=== PATIENT | male | born 1960 | race Caucasian/White ===

== ENCOUNTER 2018-10-05 13:03 | Emergency (ER) | payer OTHER ==
[2018-10-05 13:20] VITALS: BMI 23.6
[2018-10-05] MEDS ORDERED: ACETAMINOPHEN 325 MG TABLET (FP) PO ONE (13:48)
[2018-10-05] MEDS ORDERED: ACETAMINOPHEN 325 MG TABLET (FP) ONE (13:58)
[2018-10-05 14:31] LABS: BASO % 0.8 % (0-2.0); EOS % 2.5 % (0-4.5); HEMATOCRIT 31.6 % (35.4-49); HEMOGLOBIN 11.2 GM/dL (11.7-16.9); LYMPH % 7.3 % (8-40); MCH 33.4 pg (25.7-33.7); MCHC 35.5 g/dl (32.0-35.9); MEAN CELL VOLUME 94.1 fl (80-96); MEAN PLT VOLUME 8.7 fl (7.5-11.1); MONO % 4.2 % (3.8-10.2); NEUT % 85.2 % (42.8-82.8); PLATELET COUNT 211 K/MM3 (134-434); RBC 3.35 M/mm3 (4.00-5.60); WHITE BLOOD COUNT 8.1 K/mm3 (4.0-10.0)
--- NOTE | 2018-10-05 14:32 | PDOC ---
History of Present Illness - General Chief Complaint: Blood Sugar Problem Stated Complaint: WEAKNESS Time Seen by Provider: 10/05/18 13:27 History Source: Patient Exam Limitations: No Limitations - History of Present Illness Initial Comments: 10/05/18 14:04 The patient is a 58M with a PMH of T2DM, HTN, HLD who presents to the ER with complaints of lightheadedness. The patient was with his son who states that he was having difficulty walking and felt weak. He denies any CP, SOB, fever, chills, nausea, vomiting, numbness, or weakness. He admits to b/l lower extremity tingling and posterior neck pressure, both of which started at 1030 this morning. He denies any other symptoms. Past History - Past Medical History Allergies/Adverse Reactions: Allergies Allergy/AdvReac Type Severity Reaction Status Date / Time No Known Allergies Allergy Verified 09/02/13 17:14 Home Medications: Ambulatory Orders Amlodipine Besylate 10 mg PO DAILY 10/05/18 Clonidine HCl 0.1 mg PO DAILY 10/05/18 Insulin Aspart [Novolog] 10 unit SQ TID 10/05/18 Insulin Degludec [Tresiba] 44 unit SQ DAILY 10/05/18 Labetalol HCl 300 mg PO TID 10/05/18 Levothyroxine [Synthroid -] 112 mcg PO DAILY 10/05/18 Rosuvastatin Calcium [Crestor] 10 mg PO DAILY 10/05/18 Anemia: No Asthma: No Cancer: No Cardiac Disorders: No CVA: No COPD: No CHF: No Diabetes: Yes GI Disorders: No Disorders: No HTN: Yes Hypercholesterolemia: Yes Liver Disease: No Seizures: No Thyroid Disease: No - Surgical History Abdominal Surgery: No Appendectomy: No Cardiac Surgery: No Cholecystectomy: No Lung Surgery: No Neurologic Surgery: No Orthopedic Surgery: Yes ("removed liquid to right knee") - Suicide/Smoking/Psychosocial Hx Smoking History: Unknown if ever smoked Have you smoked in the past 12 months: No Information on smoking cessation initiated: No Hx Alcohol Use: No Drug/Substance Use Hx: No Substance Use Type: None Hx Substance Use Treatment: No Review of Systems - Review of Systems Able to Perform ROS?: Yes Comments:: 10/05/18 14:32 GENERAL/CONSTITUTIONAL: + for generalized weakness. No fever or chills. HEAD, EYES, EARS, NOSE AND THROAT: No change in vision. No ear pain or discharge. No sore throat. CARDIOVASCULAR: + for lightheadedness. No chest pain or palpitations. RESPIRATORY: No cough, wheezing, shortness of breath, or hemoptysis. GASTROINTESTINAL: No nausea, vomiting, diarrhea, constipation, or abdominal pain. GENITOURINARY: No dysuria, frequency, hematuria, or change in urination. MUSCULOSKELETAL: No joint or muscle swelling or pain. No neck or back pain. SKIN: No rash or lesions. NEUROLOGIC: + for tingling. No headache, numbness, focal weakness, loss of consciousness, or change in strength/sensation. Is the patient limited Czech proficient: No *Physical Exam - Vital Signs Last Vital Signs Temp Pulse Resp BP Pulse Ox 98.2 F 69 18 131/62 100 10/05/18 13:18 10/05/18 13:18 10/05/18 13:18 10/05/18 13:18 10/05/18 13:18 - Physical Exam Comments: 10/05/18 14:33 GENERAL: Well developed, well nourished. Awake and alert. No acute distress. HEENT: Normocephalic, atraumatic. Hearing grossly normal. Moist mucous membranes. PERRLA, EOMI. No conjunctival pallor. NECK: Supple. Full ROM. No JVD. CARDIOVASCULAR: Regular rate and rhythm. No murmurs, rubs, or gallops. PULMONARY: No evidence of respiratory distress. Lungs clear to auscultation bilaterally. No wheezing, rales or rhonchi. ABDOMINAL: Soft. Non-tender. Non-distended. No rebound or guarding. GENITOURINARY: No CVA tenderness bilaterally. MUSCULOSKELETAL: Normal range of motion at all joints. No bony deformities or tenderness. EXTREMITIES: No cyanosis. No clubbing. No edema. No calf tenderness or swelling. SKIN: Warm and dry. Normal capillary refill. No rashes. No jaundice. NEUROLOGICAL: Alert, awake, appropriate. Cranial nerves 2-12 grossly intact. No deficits to light touch and temperature in face, upper extremities and lower extremities. 5/5 strength in deltoids, biceps, triceps, quadriceps, hamstrings, and gastrocnemius. Normal speech. Gait is normal without ataxia. PSYCHIATRIC: Cooperative. Good eye contact. Appropriate mood and affect. Moderate Sedation - Procedure Monitoring Vital Signs: Procedure Monitoring Vital Signs Temperature 98.2 F 10/05/18 13:18 Pulse Rate 69 10/05/18 13:18 Respiratory Rate 18 10/05/18 13:18 Blood Pressure 131/62 10/05/18 13:18 O2 Sat by Pulse Oximetry (%) 100 10/05/18 13:18 ED Treatment Course - LABORATORY CBC & Chemistry Diagram: 10/05/18 14:15 10/05/18 14:15 - ADDITIONAL ORDERS Additional order review: Laboratory Results 10/05/18 13:15 POC Glucometer 58 10/05/18 13:15 POC Glucometer 58 - Medications Given in the ED: ED Medications Discontinued Medications Generic Name Dose Route Start Last Admin Trade Name Freq PRN Reason Stop Dose Admin Acetaminophen 650 mg 10/05/18 13:48 10/05/18 14:00 Tylenol - PO 10/05/18 13:49 650 mg ONCE ONE Administration Medical Decision Making - Medical Decision Making 10/05/18 14:35 The patient is a 58M with a PMH of HTN, HLD, T2DM who presents to the ER with lightheadedness and generalized weakness. FS found to be 59. Given juice and a food tray. Tylenol given for neck pain. Will reassess. 10/05/18 15:40 Cr 5.7. Pt now well appearing w/o neck pain. FS after eating 120. Case d/w Dr. Pérez who states that he is not concerned with the elevated Cr. D/w patient regarding obs vs home. Pt states he will go home and has appointment with Dr. Pérez in 4 days and will make appt with PCP. I have instructed him to eat constantly d/t half life of triceba and monitor his BGL. Pt agrees and is ready for d/c. *DC/Admit/Observation/Transfer Diagnosis at time of Disposition: Hypoglycemia - Discharge Dispostion Disposition: HOME Condition at time of disposition: Stable Decision to Admit order: No - Referrals Referrals: Khoa Alcala MD [Primary Care Provider] - - Patient Instructions Printed Discharge Instructions: DI for Hypoglycemia Additional Instructions: Your ER visit is not complete until your follow up with your primary care physician. Please follow up with your primary care physician in 1-2 days. Please return to the ER if you have any signs or symptoms of chest pain, shortness of breath, uncontrollable fever, chills, nausea, vomiting, numbness, tingling, or weakness in any part of your body, changes in vision, or slurred speech. Please take your medications as prescribed. Please return to the ER if symptoms persist, worsen, or new symptoms arise. - Post Discharge Activity
[2018-10-05 14:42] LABS: ALBUMIN 3.7 g/dl (3.4-5.0); ALK PHOS 144 U/L (45-117); ANION GAP 10 MMOL/L (8-16); BILIRUBIN,TOTAL 0.4 mg/dL (0.2-1); BLOOD UREA NITROGEN 58 mg/dL (7-18); CALCIUM 8.1 mg/dL (8.5-10.1); CHLORIDE 113 mmol/L (98-107); CO2 20 mmol/L (21-32); CREATININE 5.7 mg/dL (0.55-1.3); GLUCOSE,RANDOM 64 mg/dL (74-106); POTASSIUM 4.8 mmol/L (3.5-5.1); SGOT/AST 29 U/L (15-37); SGPT/ALT 35 U/L (13-61); SODIUM 144 mmol/L (136-145); TOT PROT 6.7 g/dl (6.4-8.2)
--- NOTE | 2018-10-05 15:45 | PDOC ---
Attending Attestation - Resident Resident Name: Geovanny Santos - ED Attending Attestation I have performed the following: I have examined & evaluated the patient, The case was reviewed & discussed with the resident, I agree w/resident's findings & plan, Exceptions are as noted - HPI HPI: 10/05/18 15:40 The patient is a 58 year old male, with a significant past medical history of HTN and IDDM, who presents to the emergency department after his son found him confused. Son notes that around 11AM, pt was lethargic and did not seem to be behaving himself. He was brought to the ED, where a fingerstick was measured to be in the 50s. Pt was given juice, with subsequent return to baseline. Pt endorses feeling lightheaded with mild headache and tingling in his legs, all of which have resolved after drinking juice. Pt notes that he took his usual 42u of tresiba this morning at 6am. However, he did not eat anything afterwards. Only drank a cup of coffee. He denies any recent fevers or chills. He denies any recent nausea, vomit, diarrhea or constipation. He denies any recent chest pain or shortness of breath. He denies any recent dysuria, frequency, urgency or hematuria. Allergies: NKDA Past surgical history: None reported. Social History: Nonsmoker. Denies EtOH use and recreational drug use. Primary Care Physician: Dr. Khoa Alcala - Physicial Exam PE: 10/05/18 15:43 GENERAL: Awake, alert, and fully oriented, in no acute distress. HEAD: No signs of trauma EYES: PERRLA, EOMI, sclera anicteric, conjunctiva clear ENT: Auricles normal inspection, hearing grossly normal, nares patent, oropharynx clear without exudates. Moist mucosa NECK: Nontender, no stepoffs, Normal ROM, supple, no lymphadenopathy, JVD, or masses LUNGS: Breath sounds equal, clear to auscultation bilaterally. No wheezes, and no crackles HEART: Regular rate and rhythm, normal S1 and S2, no murmurs, rubs or gallops ABDOMEN: Soft, nontender, normoactive bowel sounds. No guarding, no rebound. No masses EXTREMITIES: Normal range of motion, no edema. No clubbing or cyanosis. No cords, erythema, or tenderness NEUROLOGICAL: Cranial nerves II through XII intact. 5/5 strength and sensation in all extremities, Normal speech, normal gait, normal cerebellar function SKIN: Warm, Dry, normal turgor, no rashes or lesions noted. - Medical Decision Making 10/05/18 15:43 58 M with AMS, found to be hypoglycemic in ED. Now back to baseline mentation after juice. Pt's hypoglycemia likely 2/2 not eating this morning. - Labs - Feed - Recheck fingerstick 10/05/18 15:44 Pt's creatinine 5.7 Per pt's medical device assembler Dr. Ryan, pt's last Cr was just under 5 the last time it was checked. Labs otherwise unremarkable 10/05/18 15:47 Repeat fingerstick wnl after eating BP noted to be elevated to 190s systolic. Pt states he is due for his labetalol 200mg TID. Pt's home med ordered 10/05/18 17:25 BP improved Pt is well appearing, with normal vitals. Clinically stable for DC at this time. I discussed the physical exam findings, ancillary test results and final diagnoses with the patient. I answered all of the patient's questions. The patient was satisfied with the care received and felt comfortable with the discharge plan and treatment plan. The patient agrees to follow up with the primary care physician within 24-72 hours.
[2018-10-05 15:52] VITALS: TEMP 97.8
[2018-10-05] MEDS ORDERED: LABETALOL HCL 200 MG TABLET (FP) PO ONE (16:06)
[2018-10-05] MEDS ORDERED: LABETALOL HCL 100 MG TABLET (FP) ONE (16:08)
[2018-10-05 17:26] VITALS: BP 171/81; PULSE 80
== END 2018-10-05 17:29 | disposition home or self-care (01) ==
LOC: JER 13:03
DX: E11.649 Type 2 diabetes mellitus with hypoglycemia without coma (principal); Z79.84 Long term (current) use of oral hypoglycemic drugs; I10 Essential (primary) hypertension; E78.00 Pure hypercholesterolemia, unspecified
CPT/HCPCS: 36415; 80053; 82962; 85025; 99283-25

== ENCOUNTER 2022-02-03 21:29 | Emergency (ER) | payer MEDICARE, OTHER ==
[2022-02-03 21:38] VITALS: BP 128/72; PULSE 68; TEMP 98; BMI 21.4
== END 2022-02-04 00:28 | disposition left against medical advice (07) ==
LOC: JER 21:29
DX: M79.674 Pain in right toe(s) (principal)
CPT/HCPCS: 99281-25

== ENCOUNTER 2024-11-03 15:39 | Inpatient (IN) | payer MEDICARE, OTHER ==
[2024-11-03] MEDS: SODIUM CHLORIDE 0.9% 1000 ML INFUS.BAG IV STA (17:49)
[2024-11-03 17:58] LABS: VENOUS BASE EXCESS -8.1 mmol/L (-2-2); VENOUS O2 SATURATION 52.3 % (70-80); VENOUS PCO2 36.1 mmHg (38-52); VENOUS PH 7.299 (7.310-7.410)
[2024-11-03 18:00] LABS: HEMATOCRIT 52.6 % (40.1-51.0); HEMOGLOBIN 16.9 g/dL (13.7-17.5); MCHC 32.1 g/dl (32.3-36.5); MEAN CELL VOLUME 94.4 fl (79.0-92.2); MEAN PLT VOLUME 11.1 fl (9.4-12.4); PLATELET COUNT 228 x10^3/uL (163-337); RDW 12.7 % (12.2-16.4)
[2024-11-03 18:07] LABS: INR 1.74 (0.83-1.09); PROTHROMBIN TIME (PATIENT) 19.1 SEC (9.7-13.0)
[2024-11-03 18:10] LABS: ACTIVATED PTT 35.2 SECONDS (25.2-36.5)
[2024-11-03 18:26] LABS: POTASSIUM 5.1 mmol/L (3.5-5.1)
[2024-11-03 18:29] LABS: ALBUMIN 3.1 g/dl (3.4-5.0); BLOOD UREA NITROGEN 57.7 mg/dL (7-18); MAGNESIUM 1.8 mg/dL (1.8-2.4)
[2024-11-03 18:32] LABS: CREATININE 1.5 mg/dL (0.55-1.3)
[2024-11-03 18:33] LABS: BILIRUBIN,TOTAL 0.8 mg/dL (0.2-1); TOT PROT 6.5 g/dl (6.4-8.2)
[2024-11-03 18:35] LABS: LACTIC ACID 2.7 mmol/L (0.4-2.0)
[2024-11-03 19:17] LABS: BILIRUBIN,DIRECT 0.3 mg/dL (0.0-0.2)
[2024-11-03] MEDS: SODIUM CHLORIDE 0.9% 500 ML INFUS.BAG IV ONE (20:49)
[2024-11-03 22:30] LABS: PH,URINE 5.5 (5.0-8.0); URINE APPEARANCE CLOUDY; URINE BILIRUBIN NEGATIVE (NEGATIVE); URINE COLOR YELLOW; URINE GLUCOSE (UA) >=1000 (NEGATIVE); URINE KETONE 15 mg/dl (NEGATIVE); URINE PROTEIN 100 (NEGATIVE); URINE UROBILINOGEN 0.2 mg/dL (0.2-1.0)
[2024-11-03 22:31] LABS: URINE LEUK ESTERASE NEGATIVE (NEGATIVE); URINE NITRITE NEGATIVE (NEGATIVE)
[2024-11-04 00:16] VITALS: BMI 18.5
[2024-11-04] MEDS: SODIUM CHLORIDE 0.45% 1,000 ML IV SCH (02:36)
[2024-11-04] MEDS: TACROLIMUS ANHYDROUS 1 MG CAPSULE PO SCH (03:18)
[2024-11-04] MEDS: REPAGLINIDE 0.5 MG TABLET (FP) PO SCH (06:28)
[2024-11-04] MEDS: LEVOTHYROXINE NA 75 MCG TABLET (FP) PO SCH (06:28)
[2024-11-04 08:47] LABS: HEMATOCRIT 42.5 % (40.1-51.0); HEMOGLOBIN 13.8 g/dL (13.7-17.5); MCHC 32.5 g/dl (32.3-36.5); MEAN CELL VOLUME 94.7 fl (79.0-92.2); MEAN PLT VOLUME 11.3 fl (9.4-12.4); PLATELET COUNT 187 x10^3/uL (163-337); RDW 12.8 % (12.2-16.4)
[2024-11-04 09:30] LABS: ALBUMIN 2.3 g/dl (3.4-5.0); BILIRUBIN,TOTAL 0.7 mg/dL (0.2-1); CALCIUM 9.9 mg/dL (8.5-10.1); CREATININE 0.9 mg/dL (0.55-1.3); POTASSIUM 4.2 mmol/L (3.5-5.1); TOT PROT 4.8 g/dl (6.4-8.2)
[2024-11-04] MEDS: ZINC SULFATE 220 MG CAPSULE (FP) PO SCH (09:36)
[2024-11-04] MEDS: predniSONE 5 MG TABLET (UD) PO SCH (09:36)
[2024-11-04] MEDS: ASPIRIN 81 MG CHEWABLE TABLETS PO SCH (09:37)
[2024-11-04] MEDS: CINACALCET HCL 30 MG TAB (FP) PO SCH (09:38)
[2024-11-04] MEDS: METOPROLOL TARTRATE 25 MG TABLET (FP) PO SCH (09:41)
[2024-11-04 13:44] LABS: ERYTHROCYTE SEDIMENTATION RATE 14 mm/hr (0-20)
[2024-11-04] MEDS ORDERED: ONDANSETRON 4 MG/2 ML VIAL IVPUSH PRN (17:53)
[2024-11-04] MEDS: ONDANSETRON 4 MG/2 ML VIAL IVPUSH ONE (21:20)
[2024-11-04] MEDS: TAMSULOSIN HCL 0.4 MG CAP PO SCH (21:21)
[2024-11-05] MEDS: INSULIN ASPART SLIDING SCALE (NOVOLOG) 1 VIAL SQ SCH (06:44)
[2024-11-05 07:21] LABS: INR 1.31 (0.83-1.09); PROTHROMBIN TIME (PATIENT) 14.3 SEC (9.7-13.0)
[2024-11-05 07:24] LABS: ABSOLUTE IMMATURE GRANULOCYTES 0.04 x10^3/uL (0.0-0.031); BASOPHILS # 0.02 x10^3/uL (0.01-0.08); EOSINOPHIL % 0.4 % (0.8-7.0); EOSINOPHILS # 0.02 x10^3/uL (0.04-0.54); HEMATOCRIT 45.9 % (40.1-51.0); HEMOGLOBIN 14.9 g/dL (13.7-17.5); MCHC 32.5 g/dl (32.3-36.5); MEAN CELL VOLUME 93.9 fl (79.0-92.2); MEAN PLT VOLUME 11.2 fl (9.4-12.4); MONOCYTE % 10.2 % (5.3-12.2); PLATELET COUNT 180 x10^3/uL (163-337); RDW 12.8 % (12.2-16.4)
[2024-11-05 08:26] LABS: CALCIUM 9.5 mg/dL (8.5-10.1)
[2024-11-05 08:27] LABS: ALBUMIN 2.4 g/dl (3.4-5.0); BLOOD UREA NITROGEN 40.1 mg/dL (7-18)
[2024-11-05 08:31] LABS: BILIRUBIN,TOTAL 0.7 mg/dL (0.2-1); TOT PROT 4.9 g/dl (6.4-8.2)
[2024-11-05] MEDS: AMMONIUM LACTATE 12% LOTION 225 GM BOTTLE TP SCH (11:36)
[2024-11-05 12:54] LABS: HCV DIAGNOSTIC IN-HOUSE W/RFLX REACTIVE (NONREACTIVE)
[2024-11-06 09:39] VITALS: RESP 18
[2024-11-06 14:43] VITALS: BP 127/58; PULSE 58; TEMP 97.7
[2024-11-06] MEDS ORDERED: LOPERAMIDE HCL 2 MG CAPSULE PO ONE (18:16)
[2024-11-07 04:06] LABS: FIBROSIS SCORE. 0.23 (0.00-0.21); HCV ALPHA 2 MACRO CHART 179 mg/dL (110-276); NECRO.INFLAM ACT.SCORE 0.61 (0.00-0.17); NECROINFLAM. ACTIVITY GRADE A2-A3 (.)
== END 2024-11-06 18:04 | disposition home or self-care (01) | DRG 392 ==
LOC: JER 15:39 → JERBED 18:53 → J4W 23:04
PROVIDERS: ADMIT Student in an Organized Health Care Education/Training Program; ATTEND Family Medicine
DX: A08.39 Other viral enteritis (principal); E87.1 Hypo-osmolality and hyponatremia; I12.0 Hypertensive chronic kidney disease with stage 5 chronic kidney disease or end stage renal disease; Z94.0 Kidney transplant status; R55 Syncope and collapse; R11.2 Nausea with vomiting, unspecified; N18.9 Chronic kidney disease, unspecified; E78.5 Hyperlipidemia, unspecified; E11.621 Type 2 diabetes mellitus with foot ulcer; R74.01 Elevation of levels of liver transaminase levels; L97.519 Non-pressure chronic ulcer of other part of right foot with unspecified severity
CPT/HCPCS: 0241U-QW; 36415; 71045-TC-FY; 73630-TC-RT-FY; 74176-TC; 76705-TC; 80053; 80061; 80076; 80180; 80197; 81003; 82172; 82436; 82550; 82803; 82962; 82977; 83010; 83036; 83605; 83690; 83735; 83883; 83930; 83935; 84133; 84300; 84439; 84443; 84460; 84484; 85025; 85610; 85651; 85730; 86704; 86705; 86708; 86803; 86850; 86900; 86901; 87040; 87045; 87046; 87086; 87209; 87324; 87340; 87350; 87449; 87517; 87522; 93005; 93010; 99285-25